=== PATIENT | male | born 1995 | race Asian ===

== ENCOUNTER 2023-11-14 16:17 | Inpatient (IN) | payer BC, OTHER ==
[~2023-11-14] VITALS: Ht 180.3 cm; Wt 90.8 kg
[2023-11-14 17:14] LABS: Basophils # (auto) 0.1 10 ^3/uL (0-0.2); Eosinophils # (auto) 0.1 10 ^3/uL (0-0.8); Monocytes # (auto) 0.7 10 ^3/uL (0-1.3); Nucleated Red Blood Cells % 0.1 %; Red Cell Distribution Width 16.3 % (11.8-14.3)
[2023-11-14 17:16] LABS: Basophils % (auto) 0.4 % (0.0-2.0); Hematocrit 49.3 % (41.0-53.0); Hemoglobin 14.8 g/dL (13.5-17.5); Lymphocytes # (auto) 2.4 10 ^3/uL (0.4-5.4); Lymphocytes % (auto) 20.7 % (10.0-50.0); Mean Corpuscular Hgb Conc. 30.1 g/dL (32.0-36.0); Mean Corpuscular Volume 66.2 fL (80.0-100.0); Monocytes % (auto) 6.4 % (0.0-12.0); Neutrophils # (auto) 8.4 10 ^3/uL (1.6-8.6); Neutrophils % (auto) 71.5 % (37.0-80.0); Red Blood Cells 7.44 10^6/uL (4.5-5.90); White Blood Cell 11.7 10^3/uL (4.4-10.8)
[2023-11-14 17:26] LABS: Alanine Aminotransferase 43 U/L (7-40); Albumin 4.1 g/dL (3.2-4.8); Alkaline Phosphatase 73 U/L (46-116); Anion Gap 6 (5-15); Aspartate Aminotransferase 26 U/L (13-40); BUN/Creatinine Ratio 9.1 (10.0-20.0); Bilirubin, Total 0.6 mg/dL (0.2-1.0); Blood Urea Nitrogen 11 mg/dL (9-23); Calcium 9.1 mg/dL (8.7-10.4); Carbon Dioxide 27 mmol/L (20-30); Chloride 106 mmol/L (98-107); Glucose 148 mg/dL (74-106); Potassium 3.8 mmol/L (3.5-5.1); Sodium 139 mmol/L (136-145); Total Protein 7.2 g/dL (5.7-8.2)
[2023-11-14] MEDS: ALBUTEROL SULF 2.5 MG/0.5ML(0.5%) NEB SOLN NEB ONE (19:30)
[2023-11-14] MEDS: IPRATROPIUM BROM 0.5 MG/2.5ML INH SOL NEB ONE (19:30)
[2023-11-14 20:00] VITALS: PULSE 83; RESP 20; O2SAT 97
[2023-11-14] MEDS: cefTRIAXone 1GM/50ML D5W 50 ML IV ONE (20:29)
[2023-11-14] MEDS: DexAMETHasone SOD PHOS 10MG/1ML VIAL INJ IV ONE (20:29)
[2023-11-14] MEDS: AZITHROMYCIN 500MG/ 250ML 250 ML IV ONE (21:53)
[2023-11-14 22:30] VITALS: BP 132/72; PULSE 95; RESP 20; TEMP 98.2; O2SAT 96
[2023-11-14] MEDS ORDERED: DOCUSATE SOD 100 MG CAP PO PRN (22:30)
[2023-11-14] MEDS ORDERED: ACETAMINOPHEN 325 MG TAB PO PRN (22:30)
[2023-11-14] MEDS ORDERED: HYDROcodone-ACET 5/325MG TAB PO PRN (22:30)
[2023-11-14] MEDS ORDERED: ONDANSETRON HCL 4 MG/2 ML VIAL IV PRN (22:30)
[2023-11-14 22:34] VITALS: O2SAT 96
[2023-11-14] MEDS ORDERED: MORPHINE SULFATE INJ 2 MG/ml SYRG IV PRN (23:30)
[2023-11-14] MEDS ORDERED: NITROGLYCERIN 0.4 MG SL TAB SL PRN (23:30)
[2023-11-15] MEDS: SODIUM CHLORIDE 0.9% 1,000 ML IV SCH (00:55)
[2023-11-15 04:52] VITALS: PULSE 72; RESP 21; O2SAT 96
[2023-11-15 05:53] LABS: Basophils # (auto) 0 10 ^3/uL (0-0.2); Eosinophils # (auto) 0 10 ^3/uL (0-0.8); Lymphocytes # (auto) 1.1 10 ^3/uL (0.4-5.4); Monocytes # (auto) 0.1 10 ^3/uL (0-1.3); Monocytes % (auto) 1.6 % (0.0-12.0); Nucleated Red Blood Cells % 0.1 %
[2023-11-15 05:56] LABS: Basophils % (auto) 0.1 % (0.0-2.0); Hematocrit 42.6 % (41.0-53.0); Hemoglobin 13.3 g/dL (13.5-17.5); Lymphocytes % (auto) 13.3 % (10.0-50.0); Mean Corpuscular Hemoglobin 20.3 pg (28.0-32.0); Mean Corpuscular Hgb Conc. 31.1 g/dL (32.0-36.0); Mean Corpuscular Volume 65.2 fL (80.0-100.0); Neutrophils # (auto) 6.8 10 ^3/uL (1.6-8.6); Red Blood Cells 6.55 10^6/uL (4.5-5.90); Red Cell Distribution Width 16.2 % (11.8-14.3)
[2023-11-15 06:05] LABS: Alanine Aminotransferase 38 U/L (7-40); Albumin 3.9 g/dL (3.2-4.8); Alkaline Phosphatase 62 U/L (46-116); Anion Gap 7 (5-15); Aspartate Aminotransferase 24 U/L (13-40); BUN/Creatinine Ratio 12.6 (10.0-20.0); Blood Urea Nitrogen 13 mg/dL (9-23); Carbon Dioxide 24 mmol/L (20-30); Chloride 105 mmol/L (98-107); Glucose 155 mg/dL (74-106); Potassium 4.6 mmol/L (3.5-5.1); Sodium 136 mmol/L (136-145)
[2023-11-15 06:06] LABS: Bilirubin, Total 0.4 mg/dL (0.2-1.0)
[2023-11-15 08:02] LABS: Platelet Estimate Adequate
[2023-11-15 08:03] LABS: Hypochromia Marked
[2023-11-15 09:05] LABS: INR 1.04 (0.9-1.15); Prothrombin Time 10.9 sec (9.3-11.8)
[2023-11-15 09:08] LABS: CRP High Sensitivity 1.41 mg/dL (<1.0)
[2023-11-15 09:14] LABS: % Iron Saturation 12.4 % (20-55)
[2023-11-15] MEDS: DexAMETHasone SOD PHOS 10MG/1ML VIAL INJ IV SCH (09:33)
[2023-11-15] MEDS: AZITHROMYCIN 500MG/ 250ML 250 ML IV SCH (09:33)
[2023-11-15 10:41] LABS: Rapid Influenza A Negative (Negative); Rapid Influenza B Negative (Negative)
[2023-11-15 10:42] LABS: COVID19 ANTIGEN SOFIA FIA NEGATIVE (NEGATIVE)
[2023-11-15] MEDS: cefTRIAXone 1GM/50ML D5W 50 ML IV ONE (14:28)
[2023-11-15] MEDS: FERROUS SULFATE 325mg EC TAB PO SCH (18:04)
[2023-11-15 18:35] VITALS: PULSE 91; RESP 15; O2SAT 94
[2023-11-15] MEDS: IPRATROPIUM BROM 0.5 MG/2.5ML INH SOL NEB PRN (18:35)
[2023-11-15] MEDS: ALBUTEROL SULF 2.5 MG/0.5ML(0.5%) NEB SOLN NEB PRN (18:35)
[2023-11-15 18:45] VITALS: PULSE 81; RESP 16; O2SAT 100
[2023-11-15 19:55] VITALS: PULSE 84; RESP 18; O2SAT 95
[2023-11-16 06:02] LABS: Basophils # (auto) 0 10 ^3/uL (0-0.2); Eosinophils # (auto) 0 10 ^3/uL (0-0.8); Eosinophils % (auto) 0.1 % (0.0-7.0); Hemoglobin 11.6 g/dL (13.5-17.5); Neutrophils # (auto) 7.6 10 ^3/uL (1.6-8.6); Nucleated Red Blood Cells % 0.1 %
[2023-11-16 06:04] LABS: Basophils % (auto) 0.1 % (0.0-2.0); Hematocrit 37.3 % (41.0-53.0); Lymphocytes # (auto) 3.1 10 ^3/uL (0.4-5.4); Lymphocytes % (auto) 26.5 % (10.0-50.0); Mean Corpuscular Hemoglobin 20.3 pg (28.0-32.0); Mean Corpuscular Hgb Conc. 31.1 g/dL (32.0-36.0); Mean Corpuscular Volume 65.4 fL (80.0-100.0); Monocytes # (auto) 0.9 10 ^3/uL (0-1.3); Monocytes % (auto) 7.9 % (0.0-12.0); Neutrophils % (auto) 65.4 % (37.0-80.0); Red Cell Distribution Width 16.1 % (11.8-14.3); White Blood Cell 11.6 10^3/uL (4.4-10.8)
[2023-11-16 06:06] LABS: Alanine Aminotransferase 35 U/L (7-40); Alkaline Phosphatase 48 U/L (46-116); Anion Gap 7 (5-15); BUN/Creatinine Ratio 13.1 (10.0-20.0); Blood Urea Nitrogen 13 mg/dL (9-23); Calcium 8.8 mg/dL (8.7-10.4); Carbon Dioxide 25 mmol/L (20-30); Chloride 105 mmol/L (98-107); Glucose 119 mg/dL (74-106); Magnesium 1.8 mg/dL (1.6-2.6); Sodium 137 mmol/L (136-145)
[2023-11-16 06:07] LABS: Albumin 3.5 g/dL (3.2-4.8); Aspartate Aminotransferase 24 U/L (13-40); Bilirubin, Total 0.3 mg/dL (0.2-1.0)
[2023-11-16 06:43] LABS: CRP High Sensitivity 0.81 mg/dL (<1.0)
[2023-11-16 07:50] VITALS: O2SAT 98
[2023-11-16 07:55] LABS: Platelet Estimate Adequate
[2023-11-16 08:09] LABS: Anisocytosis Slight; Hypochromia Moderate
[2023-11-16] MEDS: cefTRIAXone 1GM/50ML D5W 50 ML IV SCH (08:40)
[2023-11-16 09:57] LABS: Amphetamine Screen, Urine Neg (NEGATIVE); Barbiturate Scree,Urine Neg (NEGATIVE); Benzodiazephine Screen, Urine Neg (NEGATIVE); Cannabinoid Screen, Urine Neg (NEGATIVE); Cocaine Screen, Urine Neg (NEGATIVE); Opiate Scree,Urine Neg (NEGATIVE); Phencyclidine Screen, Urine Neg (NEGATIVE)
[2023-11-16 10:11] LABS: Urine Bacteria NONE SEEN /hpf (None Seen); Urine Blood Negative /uL (Negative); Urine Clarity Clear (Clear); Urine Color Yellow (Yellow); Urine Protein, UAD Negative (Negative); Urine Specific Gravity 1.027 (1.001-1.035); Urine Urobilinogen Normal (Negative); Urine WBC 1 /hpf (0 - 3); Urine pH 6.5 (5.0-8.0)
[2023-11-16 12:23] VITALS: O2SAT 98
[2023-11-16 20:10] VITALS: O2SAT 96
[2023-11-16 22:49] VITALS: BP 125/73; PULSE 62; RESP 16; TEMP 98; O2SAT 97
[2023-11-16 22:58] VITALS: BP_SYST 111; BP_SYST 125; BP_DIAS 73; BP_DIAS 78; PULSE 62; PULSE 82; RESP 16; RESP 18; TEMP 97.8; TEMP 98; O2SAT 93; O2SAT 97
[2023-11-16] MEDS ORDERED: ESCI5TAB PO (22:59)
[2023-11-17] VITALS (7 sets, daily range): BP systolic 101–113; BP diastolic 0–65; PULSE 53–68; RESP 16–19; TEMP 36.2; O2SAT 97–99
[2023-11-17 07:06] LABS: Anion Gap 5 (5-15); Carbon Dioxide 28 mmol/L (20-30); Chloride 106 mmol/L (98-107); Potassium 4.3 mmol/L (3.5-5.1); Sodium 139 mmol/L (136-145)
[2023-11-17 07:07] LABS: Calcium 9.1 mg/dL (8.7-10.4)
[2023-11-17 07:12] LABS: BUN/Creatinine Ratio 14.7 (10.0-20.0); Blood Urea Nitrogen 16 mg/dL (9-23); Glucose 92 mg/dL (74-106)
[2023-11-17 07:13] LABS: Basophils # (auto) 0 10 ^3/uL (0-0.2); Eosinophils # (auto) 0.1 10 ^3/uL (0-0.8); Mean Corpuscular Hgb Conc. 31.2 g/dL (32.0-36.0); Monocytes # (auto) 0.7 10 ^3/uL (0-1.3); Neutrophils # (auto) 3.1 10 ^3/uL (1.6-8.6)
[2023-11-17 07:17] LABS: Basophils % (auto) 0.4 % (0.0-2.0); Hematocrit 37.2 % (41.0-53.0); Hemoglobin 11.6 g/dL (13.5-17.5); Lymphocytes # (auto) 3.9 10 ^3/uL (0.4-5.4); Mean Corpuscular Hemoglobin 20.5 pg (28.0-32.0); Mean Corpuscular Volume 65.7 fL (80.0-100.0); Monocytes % (auto) 8.9 % (0.0-12.0); Neutrophils % (auto) 39.7 % (37.0-80.0); Nucleated Red Blood Cells % 0.1 %; Red Blood Cells 5.67 10^6/uL (4.5-5.90); White Blood Cell 7.8 10^3/uL (4.4-10.8)
[2023-11-17] MEDS ORDERED: AZIT-81 PO (07:20)
[2023-11-17] MEDS ORDERED: FER325T PO (07:20)
[2023-11-17] MEDS ORDERED: CEFP200T15 PO (10:59)
== END 2023-11-17 13:35 | disposition home or self-care (01) | DRG 871 ==
LOC: ER 16:22 → TELE 23:30 → TELE-WESTW 11-16 21:30
PROVIDERS: ADMIT Internal Medicine; ATTEND Internal Medicine
DX: A41.9 Sepsis, unspecified organism (principal); J15.69 Pneumonia due to other Gram-negative bacteria; J96.01 Acute respiratory failure with hypoxia; J15.9 Unspecified bacterial pneumonia; F12.929 Cannabis use, unspecified with intoxication, unspecified; L30.9 Dermatitis, unspecified; D50.9 Iron deficiency anemia, unspecified
CPT/HCPCS: 36415; 71046; 71250; 80048; 80053; 80307; 81001; 82270; 82306; 82728; 83540; 83550; 83605; 83735; 83880; 84439; 84443; 85025; 85610; 86141; 86703; 87040; 87081; 87426; 87804; 94640; 96365; G0378; J1100